=== PATIENT | male | born 1965 | race Caucasian/White ===

== ENCOUNTER 2019-09-13 12:12 | Emergency (ER) | payer BC, SELFPAY ==
[2019-09-13 12:14] VITALS: BP 141/92; PULSE 77; RESP 16; TEMP 36.4; O2SAT 99; BMI 34.1
--- NOTE | 2019-09-13 12:33 | RAD_ITS ---
STUDY: X-RAY - LUMBAR SPINE REASON FOR EXAM: Male, 54 years old. FALL FROM LADDER PAIN LOW BACK TECHNIQUE: 2 view(s) of the lumbar spine were obtained. COMPARISON: None FINDINGS: Normal lumbar lordosis. There is no substantial scoliosis. There is a normal alignment of the vertebrae. There is multilevel endplate spondylosis of the lumbar vertebrae. Degenerative disc space narrowing at L5-S1 with multilevel facet arthropathy. There is no demonstrated fracture. The soft tissue structures are unremarkable. RAD/Lumbar Spine 2 or 3 Views IMPRESSION: No demonstrated fracture. Degenerative changes. Electronically Signed: Bobby Grier MD (Brooks) at 13:16 EST , Service support ,
--- NOTE | 2019-09-13 12:33 | CT_ITS ---
STUDY: CT CERVICAL SPINE WITHOUT CONTRAST REASON FOR EXAM: Male, 54 years old. FALL, LAC TO HEAD, RT SIDE NECK PAIN RADIATION DOSAGE (If Supplied By Facility): CTDIvol = ( 26.35 ) mGy, DLP = ( 557.61 ) mGycm TECHNIQUE: High resolution transaxial imaging was performed without contrast material. Sagittal and coronal images were reconstructed. Individualized dose optimization techniques were used for this CT. COMPARISON: None FINDINGS: Normal craniovertebral junction. Normal anterior atlantoaxial articulation. Normal odontoid process. Normal cervical lordosis. Normal vertebral bodies and posterior osseous elements. C2-3: Normal endplates. Normal disc height and morphology. Bilateral uncovertebral and facet arthropathy narrow the bilateral neural foramina. C3-4: Normal endplates. Normal disc height and morphology. Normal central canal and intervertebral neuroforamina. C4-5: Normal endplates. Normal disc height and morphology. Left uncovertebral hypertrophy narrows the neural foramen. C5-6: Normal endplates. Normal disc height and morphology. Normal central canal and intervertebral neuroforamina. C6-7: Normal endplates. Normal disc height and morphology. Normal central canal and intervertebral neuroforamina. C7-T1: Normal endplates. Normal disc height and morphology. Normal central canal and intervertebral neuroforamina. Normal visualized soft tissue structures. CT/Spine Cervical without Contras IMPRESSION: No cervical spine fracture or traumatic subluxation. Electronically Signed: Bobby Grier MD (Brooks) at 13:21 EST , Service support ,
--- NOTE | 2019-09-13 12:33 | CT_ITS ---
STUDY: CT BRAIN WITHOUT CONTRAST REASON FOR EXAM: Male, 54 years old. FALL, LAC TO HEAD, RT SIDE NECK PAIN RADIATION DOSAGE (If Supplied By Facility): CTDIvol = ( 44.99 ) mGy, DLP = ( 863.60 ) mGycm TECHNIQUE: Transaxial CT imaging of the brain was performed without administration of intravenous contrast material. Individualized dose optimization techniques were used for this CT. COMPARISON: No relevant priors. FINDINGS: Normal soft tissue structures. Normal calvarium. Normal size ventricles and extra-axial spaces for the patient''s age. Normal white matter tracts of the cerebral hemispheres. Normal basal ganglia and thalami. Normal brainstem. Normal cerebellum. There is no intracranial hemorrhage. There are no findings of an acute ischemic infarction. Mucoperiosteal thickening of the right maxillary sinus more than left maxillary sinus. There is an air-fluid level on the right side. Rightward deviation of the nasal septum noted. CT/Brain/Head without Contrast IMPRESSION: 1. No acute intracranial hemorrhage or mass effect. 2. Right more than left maxillary sinusitis with acute and chronic features. Electronically Signed: Bobby Grier MD (Brooks) at 13:00 EST , Service support ,
[2019-09-13 12:34] VITALS: BP 129/88; PULSE 69; RESP 16; O2SAT 98
[2019-09-13] MEDS: Diphth,Pertuss(Acell),Tet Vac 0.5 ML Vial IM (14:15)
[2019-09-13 14:17] VITALS: BP 140/86; PULSE 65; RESP 16; O2SAT 98
--- NOTE | 2019-09-13 14:19 | ED.DCSUM_ITS ---
- ER Visit Summary Date of Service: 09/13/19 Chief Complaint: [Fall with head injury and back injury] History of Present Illness: The patient is a 54 M [presents to the emergency department after sustaining a fall prior to arrival in the emergency department. Patient states that he was up on a ladder when the ladder started to fall. Patient was about 6 to 8 feet off the ground and fell backwards. Patient states that his back hit initially and then his head hit the concrete. No loss of consciousness. Patient was able to get up and has been ambulatory since the fall. He is unsure of his last tetanus shot. He did sustain laceration to the back of his head. Patient denies he has no medical history. Patient has had prior right knee replacement. Complains of multiple small superficial abrasions to the dorsum of digits to both hands.] Physical Examination: [HEENT-PERRLA, EOMI. Cranial nerves II through XII grossly intact. TMs clear. Mucous membranes moist. No adenopathy. Patient has a soft tissue swelling to the posterior occiput with about a 3.5 cm laceration noted. No bony step-offs or depressions noted. Patient has some mild diffuse tenderness over the C-spine. Cardiovascular-regular rate and rhythm without murmur or ectopy Lungs-clear to auscultation, chest wall stable without crepitus or subcu emphysema Abdomen-normoactive bowel sounds, soft, nontender, no rebound or rigidity, no peritoneal signs. Back exam-patient has tenderness to palpation over the lower lumbar spine. No ecchymosis or bruising noted. He has no CVA tenderness on exam. No tenderness over the posterior ribs noted. There is no evidence of ecchymosis or bruising. He has negative straight leg raises. Deep tendon reflexes are plus 2 out of 4 bilaterally at the patella and Achilles. Patient has normal 5 extension. Extremities-intact ?4, normal range of motion, normal pulses, atraumatic] Test Results: [CT scan of the brain without contrast showed nothing acute. CT of the C-spine showed no fractures. X-rays of the lumbar spine showed degene rative changes but no fractures.] Emergency Department Course and Treatment: [He did not anything for pain. Laceration repair-wound sterilely draped and prepped. Wound anesthetized locally with 1% lidocaine total 4 cc. Wound cleansed with Shur-Clens and irrigated with copious saline. Using 4-0 nylon a total of 4 single ruptured sutures placed with good wound edge approximation. Patient tolerated procedure well.] Treatment Plan: [Patient to follow-up with primary care physician in 10 days for suture removal. Patient did not anything for pain for home.] Disposition: [Discharged home in stable condition] Impression: [Mechanical fall Closed head injury Scalp laceration 3.5 cm-simple repair Contusion back] This note was generated with [employer] dictation software. It may contain incorrect words, spelling, and punctuation that were not noted in review of the chart prior to signing ED Disposition - Plan for ED Patient: Referrals: Oswaldo Josue MD [Primary Care Provider] -
--- NOTE | 2019-09-13 14:22 | ED.DEP ---
ED Disposition - Plan for ED Patient: Instructions: SCALP CONTUSION, No Wake Up, LACERATION, Scalp, CONTUSION, Back Referrals: Oswaldo Josue MD [Primary Care Provider] - 10 Day for suture removal
[2019-09-13 14:46] VITALS: BP 141/85; PULSE 66; RESP 15; O2SAT 98
== END 2019-09-13 14:47 | disposition home or self-care (01) ==
PROVIDERS: Emergency Provider Emergency Medicine; PCP Family Medicine
DX: S01.01XA Laceration without foreign body of scalp, initial encounter (principal); W11.XXXA Fall on and from ladder, initial encounter; J32.0 Chronic maxillary sinusitis; Z96.651 Presence of right artificial knee joint; Z72.0 Tobacco use; S30.0XXA Contusion of lower back and pelvis, initial encounter
CPT/HCPCS: 12002; 70450; 72100; 72125; 90715; 99283

== ENCOUNTER 2025-04-29 07:48 | Day surgery (SDC) | payer OTHER, SELFPAY ==
[2025-04-29] VITALS (8 sets, daily range): BP systolic 105–131; BP diastolic 72–82; PULSE 57–63; RESP 16; TEMP 36.1–36.6; O2SAT 96–98; BMI 34.2
--- NOTE | 2025-04-29 07:57 | H&P.OPEN ---
[facility] - General General Date of Service: 04/29/25 HPI Narrative ANNABELLE FARRIS, is a 59 M who presents for screening colonoscopy. Patient's last colonoscopy was in 2013 negative per patient. Patient's mom was diagnosed with colon cancer age 81. Patient has bowel movements daily denies any blood. Patient denies any chronic abdominal pain/nausea/vomiting/reflux. [facility] Medical History (Updated 04/23/25 @ 12:36 by Elza Cuevas) Wears glasses Arthritis High cholesterol Heartburn Non-smoker Screening for colon cancer Home Medications ?Medication ?Instructions ?Recorded ?Last Taken ?Type aspirin 81 mg capsule 81 mg PO DAILY 04/23/25 Unknown History atorvastatin 80 mg tablet 40 mg PO QHS 04/23/25 Unknown History celecoxib 200 mg capsule 200 mg PO BID 04/23/25 Unknown History Allergy/AdvReac Type Severity Reaction Status Date / Time No Known Allergies Allergy Verified 04/23/25 12:29 Surgical History (Updated 04/23/25 @ 12:36 by Elza Cuevas) Hx of total knee replacement S/P right knee surgery Social History (Updated 02/04/18 @ 09:28 by Keagan Harding DO) Smoking Status: Never smoker Past Medical/Surgical History Planned Operation Planned Operative Procedure(s): Colonoscopy - Open Access Previous Hospitalizations/Surgeries HX Hospitalizations: No Any Problems With Anesthesia: No You/Your Family Experience Fever (Hyperthermia) With Anes: No Cholinesterase deficiency: No Cardiovascular Hx Hypertension: No Hx Cardiac Catheterization: No Respiratory Hx Chronic Obstructive Pulmonary Disease (COPD): No Hx Asthma: No Hx Emphysema: No Hx Sleep Apnea: No Hx Respiratory Tract Infection/Cold (presently): No Do You Snore Loudly (louder than talking or can be heard): No Do You Often Feel Tired/ Fatigued/ Sleepy Dring Daytime?: No Has Anyone Observed You Stop Breathing During Sleep?: No Result (for STOP score): Negative Smoking Status: Never smoker Neurological Hx Seizures: No Hx Back Injury/Pain: No Does patient have nerve stimulator: No Blood Disorder Hx High Cholesterol: No Hx Hepatitis: No Hx Cirrhosis: No Reproduction : No Endocrine Hx Diabetes: No Psycho/Social Hx Substance Use: No Hx Alcohol Use: No Hx Anxiety: No Hx Depression: No Allergies No Known Allergies Allergy (Verified 04/23/25 12:29) Discharge Is Pt Admitted From a Intermediate, or a [facility]: No After D/C, Where Do you Plan to Go: Return Home Physical Exam Const alert, oriented x3 and no apparent distress HEENT normocephalic and head/scalp atraumatic Resp normal respiratory effort Cardio regular rate GI soft to palpation and non-tender; Negative for non-distended Palpation: Negative for guarding Extremity no clubbing, cyanosis or edema Skin no rashes or lesions noted Neuro CN's II-XII intact bilaterally Psych mental status grossly normal Assessment & Plan Assessment/Plan (1) Screening for colon cancer: Surgery Risks - Colonoscopy I discussed with the patient the risks of the procedure: Yes Risks Include but are not Limited To: Risks include but are not limited to: Bleeding, perforation requiring further surgery, inability to complete colonoscopy requiring barium enema.
[2025-04-29] MEDS: Lactated Ringers 1,000 ML 15 ML IV (08:28)
--- NOTE | 2025-04-29 08:43 | PCM.PRE.AN2 ---
ASA Classification* ASA Classification ASA Classification: 2 Assessment & Plan Anesthesia* Anesthesia Assessment Anesthesia Assessment: Discussed sedation and/or anesthesia options, risks, benefits, and alternatives with patient/parents/legal guardian/POA. Questions invited. The patient/parents/legal guardian/POA seems to understand and agrees to proceed with anesthesia plan. Reviewed the physical assessment, medical history, allergy history and patient home medications list prior to surgery/procedure/anesthetic and documented any changes. Performed airway and anesthesia risk assessments. 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 When Was Last Pacemaker Check QUESTION #4 FULL TEXT: You/Your Family Experience fever (hyperthermia) with Anesthesia Last Oral Intake Last Oral intake: Last Oral Intake NPO since 22:00 04/29/25 08:18 Meds taken in AM with sips of No 04/29/25 08:18 water? Meds patient instructed to see med list 04/29/25 08:18 take am of surgery PONV PONV - cooling tower operator: PONV - cooling tower operator Female No 04/23/25 12:36 HX of Motion Sickness No 04/23/25 12:36 HX of N/V After Surgery No 04/23/25 12:36 Non-Smoker Yes 04/23/25 12:36 Duration of Surgery greater No 04/23/25 12:36 than 60 minutes Number of Risk Factors 1 04/23/25 12:36 PONV Score Low Risk 04/23/25 12:36 Height & Weight Height & Weight: Anesthesia: Height & Weight Height 6 ft 2 in 04/29/25 08:18 Weight: 121 kg 04/29/25 08:18 Body Mass Index (BMI) 34.2 04/29/25 08:18 Respiratory Assessment Respiratory Assessment - cooling tower operator: Respiratory Tract Infection Hx - cooling tower operator Hx Respiratory Tract Infection No 04/29/25 07:57 STOP Sleep Apnea STOP Sleep Apnea - cooling tower operator: STOP Sleep Apnea - cooling tower operator Hx Hypertension No 04/29/25 07:57 Hx Sleep Apnea No 04/29/25 07:57 CPAP BIPAP Do you snore loudly (louder No 04/29/25 07:57 than talking or can be heard Do you often feel tired/ No 04/29/25 07:57 fatigued/ sleepy during daytime? Has anyone observed you stop No 04/29/25 07:57 breathing during sleep? STOP Results Negative 04/29/25 08:13 QUESTION #5 FULL TEXT : Do you snore loudly (louder than talking or can be heard through closed doors)? 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 Specify any problems Hx of Preganancy in last 3 N/A 04/23/25 12:36 Months Nurse Filling Out Transfusion JZOLLINGE 04/23/25 12:36 & Questions: Date: 04/23/25 04/23/25 12:36 Time: 12:37 04/23/25 12:36 Patient unable to answer at this time (ie. confused, unrespo /Reproduction History /Reproductive History - cooling tower operator: /Reproductive Hx- cooling tower operator Hx Now No 04/29/25 07:57 Gestational Age (in weeks): EDC: Hx Hx Para Hx Section SAB No 04/23/25 12:36 Active Medications Active Medications: Current Medications Generic Name Dose Route Start Last Admin Trade Name Freq PRN Reason Stop Dose Admin Lactated Ringer's 1,000 mls @ 15 mls/hr 04/29/25 08:00 04/29/25 08:28 IV 15 mls/hr .Q48H DELANO Administration PFSH Medical History Wears glasses Arthritis High cholesterol Heartburn Non-smoker Screening for colon cancer Home Medications ?Medication ?Instructions ?Recorded ?Last Taken ?Type aspirin 81 mg capsule 81 mg PO DAILY 04/23/25 04/22/25 History atorvastatin 80 mg tablet 40 mg PO QHS 04/23/25 Unknown History celecoxib 200 mg capsule 200 mg PO BID 04/23/25 Unknown History Allergy/AdvReac Type Severity Reaction Status Date / Time No Known Allergies Allergy Verified 04/29/25 08:17 Surgical History Hx of total knee replacement S/P right knee surgery Social History Smoking Status: Never smoker Review of Systems (Anesthesia) ROS Narrative System reviewed and no additional complaints, except as documented.
--- NOTE | 2025-04-29 09:15 | COLBX_PTH ---
PATIENT: ANNABELLE FARRIS LOC: EN U#:[id number] AGE/SX: 59/M ROOM: RE04/29/[address]: Dr. Evi Howell MD : 1965 BED: DIS: 04/29/2025 SPEC #: [id number] RECD: 04/29/25 10:47 STATUS: HERIBERTO REKeyana #: [id number] JÚNIOR: 04/29/25 09:[address]: Evi Howell DEPT: SURGICAL PATHOLOGY RECD BY: Felipe Madrigal ENTERED: 04/29/25 11:44 SP TYPE: COLON BX OTHR DR: Dr. Oswaldo Josue MD Tissues: A - Transverse colon B - Descending colon Procedures: Surgery Specimen Level IV HEADER OPERATION: Colonoscopy with polypectomy with hot snare PRE-OP DIAGNOSIS: Screening for colon cancer TISSUE SUBMITTED: A- Transverse colon polyp, B- Descending colon polyp biopsy MICROSCOPIC DIAGNOSIS A. Transverse colon, polyp, biopsy: * Serrated polyp with features of sessile serrated adenoma B. Descending colon, polyp, biopsy: * Hyperplastic polyp MICROSCOPIC DESCRIPTION Slides are reviewed. GROSS DESCRIPTION A. Received in fixative is one container labeled with the patient's name and designated Transverse colon polyp. The specimen consists of multiple irregular fragments of morales tissue that in aggregate measure 0.8 x 0.6 x 0.1 cm. The specimen is totally submitted in one cassette. B. Received in fixative is one container labeled with the patient's name and designated Descending colon polyp biopsy. The specimen consists of one irregular fragment of morales tissue that measures 0.6 cm. The specimen is totally submitted in one cassette. SD 04/29/2025 CPT:04892r1
--- NOTE | 2025-04-29 09:48 | OP.COLON_ITS ---
Patient Name: Pascual Carr Procedure Date: 04/29/2025 9:09 AM Date of : 1965 Age: 59 Procedure: Colonoscopy Indications: Screening for colorectal malignant neoplasm Providers: Evi Howell MD Referring MD: Oswaldo Josue Medicines: Monitored Anesthesia Care Patient Profile: This is a 59 year old male. Last Colonoscopy: 2013. Complications: No immediate complications. Procedure: Pre-Anesthesia Assessment: - Prior to the procedure, a History and Physical was performed, and patient medications and allergies were reviewed. The patient's tolerance of previous anesthesia was also reviewed. The risks and benefits of the procedure and the sedation options and risks were discussed with the patient. All questions were answered, and informed consent was obtained. Prior Anticoagulants: The patient has taken no anticoagulant or antiplatelet agents. ASA Grade Assessment: Per anesthesia. After reviewing the risks and benefits, the patient was deemed in satisfactory condition to undergo the procedure. After I obtained informed consent, the scope was passed under direct vision. Throughout the procedure, the patient's blood pressure, pulse, and oxygen saturations were monitored continuously. The colonoscope was introduced through the anus and advanced to the cecum, identified by the appendiceal orifice, ileocecal valve and palpation. The colonoscopy was performed without difficulty. The patient tolerated the procedure well. The quality of the bowel preparation was good. Scope In: 9:17:45 AM Scope Withdrawal Time 0 hours 19 minutes 36 seconds Scope Out: 9:42:50 AM Total Procedure Duration Time 0 hours 25 minutes 5 seconds Findings: Hemorrhoids were found on perianal exam. Non-bleeding internal hemorrhoids were found. The hemorrhoids were Grade I (internal hemorrhoids that do not prolapse). A less than 5 mm polyp was found in the transverse colon. The polyp was sessile. The polyp was removed with a hot snare. Resection and retrieval were complete. A less than 5 mm polyp was found in the descending colon. The polyp was sessile. The polyp was removed with a cold biopsy forceps. Resection and retrieval were complete. The exam was otherwise without abnormality. Impression: - Hemorrhoids found on perianal exam. - Non-bleeding internal hemorrhoids. - One less than 5 mm polyp in the transverse colon, removed with a hot snare. Resected and retrieved. - One less than 5 mm polyp in the descending colon, removed with a cold biopsy forceps. Resected and retrieved. - The examination was otherwise normal. Recommendation: - Discharge patient to home. - Resume previous diet. - Continue present medications. - Await pathology results. - Repeat colonoscopy in 5 years for surveillance based on pathology results. Procedure Code(s): --- Professional --- 22870, PT, Colonoscopy, flexible; with removal of tumor(s), polyp(s), or other lesion(s) by snare technique 74999, 59, Colonoscopy, flexible; with biopsy, single or multiple Diagnosis Code(s): --- Professional --- Z12.11, Encounter for screening for malignant neoplasm of colon K64.0, First degree hemorrhoids D12.3, Benign neoplasm of transverse colon (hepatic flexure or splenic flexure) D12.4, Benign neoplasm of descending colon CPT copyright 2021 [employer]. All rights reserved. The codes documented in this report are preliminary and upon county treasurer review may be revised to meet current compliance requirements. MD Evi Billingsley MD 04/29/2025 9:47:58 AM This report has been signed electronically. Number of Addenda: 0 Note Initiated On: 04/29/2025 9:09 AM
--- NOTE | 2025-04-29 09:48 | OP.PROVAT_ITS ---
04/29/2025 Oswaldo Josue [address] [place] [address] [place] [address] Re : Colonoscopy procedure for Pascual Carr Dear Dr. Josue This procedure was performed on Tuesday, April 29, 2025. My impressions and recommendations are as follows: Impressions : - Hemorrhoids found on perianal exam. - Non-bleeding internal hemorrhoids. - One less than 5 mm polyp in the transverse colon, removed with a hot snare. Resected and retrieved. - One less than 5 mm polyp in the descending colon, removed with a cold biopsy forceps. Resected and retrieved. - The examination was otherwise normal. Recommendations : - Discharge patient to home. - Resume previous diet. - Continue present medications. - Await pathology results. - Repeat colonoscopy in 5 years for surveillance based on pathology results. My findings are described in the full procedure note, which is enclosed. If I can be of further assistance, please feel free to contact me at Doctor phone number(s): , Work: . Sincerely, MD Evi Billingsley MD 04/29/2025 9:47:58 AM This report has been signed electronically.
--- NOTE | 2025-04-29 09:52 | PCM.POST.ANE ---
Anesthesia: Postop Eval I Current Vital Signs Temperature: 97.1 F Pulse Rate: 61 Blood Pressure: 110/75 Respiratory Rate: 16 Pulse Ox: 98 Oxygen Delivery Method: Room Air Assessment Airway patent: Yes Spontaneous unlabored respirations: Yes Mental status: Asleep nausea: No Vomiting: No Anesthesia Complication: No Fluid Hydration Crystalloid volume administer (ml): 500 Total IV fluid infused: 500 Progress Note Anesthesia document: Postop Eval 1 completed: Yes
--- NOTE | 2025-04-29 12:29 | PCM.POSTANE2 ---
Anesthesia Postop Eval I Sum Postop Eval Completion status Anesthesia document: Postop Eval 1 completed: Yes Anesthesia Postop Eval I Summary Anesthesia Postop Eval I Summary: Anesthesia Postop Eval I: Assessment Summary Airway patent Yes 04/29/25 09:53 [email or web address] Spontaneous unlabored Yes 04/29/25 09:53 [email or web address] respirations Mental status Asleep 04/29/25 09:53 [email or web address] nausea No 04/29/25 09:53 [email or web address] Vomiting No 04/29/25 09:53 [email or web address] Anesthesia Postop Eval I: Fluid Summary Crystalloid volume administer 500 04/29/25 09:53 [email or web address] (ml) Colloids volume administered ( ml) Blood Product volume administered (ml) Total IV fluid infused 500 04/29/25 09:53 [email or web address] Anesthesia Postop Eval I: Summary Notes Anesthesia Complication No 04/29/25 09:53 [email or web address] Anesthesia Complication Comment: Post-operative progress note Anesthesia: Postop Eval II Evaluation Mental status: Awake and Calm Pain Level: 1 nausea: No Vomiting: No Complications Anesthesia Complication: No
== END 2025-04-29 10:22 | disposition home or self-care (01) ==
LOC: EN 07:50 → AC 07:51
PROVIDERS: PCP Family Medicine; Referring Provider Family Medicine; Visit Provider Surgery
PROC: 0DJD8ZZ Inspection of Lower Intestinal Tract, Via Natural or Artificial Opening Endoscopic (ICD-10-PCS; CPT 45378; principal; 2025-04-29 09:10)
DX: Z12.11 Encounter for screening for malignant neoplasm of colon (principal); E78.00 Pure hypercholesterolemia, unspecified; K64.0 First degree hemorrhoids; Z80.0 Family history of malignant neoplasm of digestive organs; Z79.899 Other long term (current) drug therapy; Z96.659 Presence of unspecified artificial knee joint; K64.4 Residual hemorrhoidal skin tags; K63.5 Polyp of colon
CPT/HCPCS: 45385; 45380; 88305; J2405